=== PATIENT | male | born 1985 | race Caucasian/White ===

== ENCOUNTER 2017-12-22 20:18 | Emergency (ER) | payer MEDICAID, SELFPAY ==
[2017-12-22 20:27] VITALS: BP 128/80; PULSE 93; RESP 18; TEMP 36.8; O2SAT 96; BMI 26.2
--- NOTE | 2017-12-22 20:35 | XR_ITS ---
XR chest 2V HISTORY: Shortness of air ITS.REASON: soa ORDERING PHYSICIAN: Carlos Narvaez MD PATIENT AGE: 32 years COMPARISON: None available FINDINGS: The cardiomediastinal silhouette and pulmonary vascularity are within normal limits. The lungs are clear without infiltrates, suspicious nodules, or pleural effusions. No acute bony abnormalities. IMPRESSION: Negative chest, no acute finding
[2017-12-22 20:52] LABS: Basophils % 0.5 % (0.1-2.0); Eosinophils # 0.3 K/mm3 (0.0-0.4); Eosinophils % 3.5 % (0.1-12.0); Hematocrit 48.8 % (42.0-52.0); Hemoglobin 15.9 g/dL (14.1-18.0); Lymphocytes # 2.8 K/mm3 (0.7-4.5); Lymphocytes % 35.2 K/mm3 (10-50); Mean Corpuscular HGB Conc 32.6 g/dL (31.8-35.4); Mean Corpuscular Hemoglobin 29.6 pg (27.0-31.2); Mean Corpuscular Volume 90.7 fl (80-94); Mean Platelet Volume 7.9 fl (7.4-10.4); Microscopic, Urine URINE MICROSCOPIC (MICROSCOPIC); Monocytes # 0.4 K/mm3 (0.1-1.0); Monocytes % 5.5 % (1.7-9.3); Neutrophils # 4.3 K/mm3 (1.8-7.8); Neutrophils % 55.3 % (37.0-80.0); Platelet Count 228 K/mm3 (142-424); Red Blood Count 5.38 M/mm3 (4.60-6.20); Red Cell Distribution Width 13.8 % (11.5-17.5); White Blood Count 7.8 K/mm3 (4.8-10.8)
[2017-12-22 21:01] LABS: Appearance,Urine SL CLOUDY (Clear); Bilirubin,Urine Negative (Negative); Blood, Urine Negative (Negative); Color,Urine YELLOW (Yellow); Glucose,Urine (UA) Negative (Negative); Ketones,Urine Negative (Negative); Leukocyte Esterase,Urine Negative (Negative); Nitrate,Urine Negative (Negative); Protein,Urine Negative (Negative); Urobilinogen,Urine 0.2 EU/dl (0.2)
[2017-12-22 21:19] VITALS: BP 119/79; PULSE 107; RESP 18; O2SAT 98
[2017-12-22 21:21] LABS: Alanine Aminotransferase 35 U/L (12-78); Albumin Level 3.9 gm/dL (3.4-5.0); Albumin/Globulin Ratio 1.1 (1.1-1.8); Alkaline Phosphatase 82 U/L (46-116); Amylase 55 U/L (25-125); Aspartate Amino Transferase 19 U/L (15-37); Bilirubin,Total 0.2 mg/dL (0.2-1.0); Blood Urea Nitrogen 15 mg/dL (7-18); Calcium 8.7 mg/dL (8.5-10.1); Carbon Dioxide 30 mmol/L (21.0-32.0); Chloride 107 mmol/L (98-107); Creatinine Clearance Estimated 115 mL/min (0-300); Creatinine,Serum 1.09 mg/dL (0.70-1.30); Estimated Glomerular Filt Rate 77 ml/min (>60); GFR (African American) 94 ML/MIN (>60); Globulin 3.5 gm/dl (1.3-3.2); Glucose 87 mg/dL (74-106); Lipase 168 u/L (73-393); Sodium 144 mmol/L (136-145); Total Protein,Serum 7.4 gm/dL (6.4-8.2)
[2017-12-22 21:23] LABS: Adenovirus,PCR Not Detected (NotDetected); Bordetella Pertussis Not Detected (NotDetected); Chlamydophila Pneumoniae, PCR Not Detected (NotDetected); Coronavirus 229E Not Detected (NotDetected); Coronavirus NL63 Not Detected (NotDetected); Coronavirus OC43 Not Detected (NotDetected); Coronovirus HKU1,PCR Not Detected (NotDetected); Human Metapneumovirus Not Detected (NotDetected); Influenza A, PCR Not Detected (NotDetected); Influenza AH1, 2009 Not Detected (NotDetected); Influenza AH1, PCR Not Detected (NotDetected); Influenza AH3,PCR Not Detected (NotDetected); Influenza B, PCR Not Detected (NotDetected); Mycoplasma Pneumoniae, PCR Not Detected (NotDected); Parainfluenza 1, PCR Not Detected (NotDetected); Parainfluenza 2, PCR Not Detected (NotDetected); Parainfluenza 3, PCR Not Detected (NotDetected); Parainfluenza 4, PCR Not Detected (NotDetected); Respiratory Syncytial Virus Not Detected (NotDetected); Rhinovirus/Enterovirus Not Detected (NotDetected)
[2017-12-22 21:29] LABS: Bacteria,Urine 1+ /lpf; RBC,Urine Occasional #/hpf (0-3); WBC,Urine Occasional #/hpf (0-3)
--- NOTE | 2017-12-22 21:38 | HMH.EDNVD ---
ED Disposition Clinical Impression: Bronchitis Disposition: Home, Self-Care Condition on Discharge: Good Instructions: DI for Nausea -- Adult Additional Instructions: fluids and see pcp for follow up Prescriptions: Azithromycin [Zithromax 250mg tab] 250 mg PO DIRECTED #6 tab Referrals: Trae Durand [Primary Care Provider] - - Critical Care Critical Care Time: No Attestation: On , the high probability of a clinically significant, sudden or life threatening deterioration of the following system(s) required my full and direct attention, intervention and personal management. The time I documented below is in addition to time spent performing reported procedures but includes the following listed in this critical care notation. Medical Decision Making - Medical Records Medical records reviewed: Yes: I reviewed the patient's medical records. - Dereck Inquiry Pt receiving controlled substance: No Vital Signs: 12/22/17 20:27 12/22/17 21:19 Temperature 98.2 F Temperature Source Oral Pulse Rate [Right Brachial] 93 H 107 H Respiratory Rate 18 18 Blood Pressure [Right Arm] 128/80 119/79 Blood Pressure Mean [Right Arm] 96 92 Blood Pressure Source [Right Arm] Automatic Cuff Automatic Cuff Blood Pressure Position [Right Arm] Sitting Sitting 02 Sat by Pulse Oximetry 96 98 Oxygen Delivery Method Room Air Room Air - Lab Data Lab results reviewed: Yes: I reviewed the patient's lab results. Lab Results 12/22/17 20:40: Urine Color Yellow, Urine Appearance Sl cloudy, Urine pH 8.0, Ur Specific [place] 1.020, Urine Protein Negative, Urine Glucose (UA) Negative, Urine Ketones Negative, Urine Blood Negative, Urine Nitrate Negative, Urine Bilirubin Negative, Urine Urobilinogen 0.2, Ur Leukocyte Esterase Negative, Urine RBC Occasional, Urine WBC Occasional, Ur Squamous Epith Cells 5-10, Urine Bacteria 1+ 12/22/17 20:40: WBC 7.8, RBC 5.38, Hgb 15.9, Hct 48.8, MCV 90.7, MCH 29.6, MCHC 32.6, RDW 13.8, Plt Count 228, MPV 7.9, Neut % (Auto) 55.3, Lymph % (Auto) 35.2, [place] % (Auto) 5.5, Eos % (Auto) 3.5, Baso % (Auto) 0.5, Neut # (Auto) 4.3, Lymph # (Auto) 2.8, [place] # (Auto) 0.4, Eos # (Auto) 0.3, Baso # (Auto) 0.0 12/22/17 20:40: Sodium 144, Potassium 4.0, Chloride 107, Carbon Dioxide 30, Anion Gap 11.0, BUN 15, Creatinine 1.09, Estimated Creat Clear 115, Estimated GFR 77, Est GFR ( Amer) 94, Glucose 87, Calcium 8.7, Total Bilirubin 0.2, AST 19, ALT 35, Alkaline Phosphatase 82, Total Protein 7.4, Albumin 3.9, Globulin 3.5 H, Albumin/Globulin Ratio 1.1, Amylase 55, Lipase 168 12/22/17 20:40: Influenza Type A Ag Negative, Influenza Type B Ag Negative Result diagrams: 12/22/17 20:40 12/22/17 20:40 Orders (Tests/Meds): ED MEDICATIONS Generic Name Dose Route Start Last Admin Trade Name Freq PRN Reason Stop Dose Admin Sodium Chloride 1,000 mls @ 250 mls/hr 12/22/17 20:45 12/22/17 21:28 Sod Chlor 0.9% 1000ml Bag IV 01/21/18 20:44 250 mls/hr .Q4H DANIE Administration Discontinued Medications Generic Name Dose Route Start Last Admin Trade Name Freq PRN Reason Stop Dose Admin Ondansetron HCl 4 mg 12/22/17 20:36 12/22/17 20:41 Zofran 4mg/2ml Vial IV 12/22/17 20:37 4 mg ONCE ONE Administration ORDERS Category Date Time Status XR chest 2V Stat Exams 12/22/17 20:35 Taken Upper Respiratory Panel, PCR Stat Lab 12/22/17 21:15 Received - Radiology Data #1 Image(s): Chest Image Reviewed: Yes I reviewed the patient's radiology image Preliminary Findings: Normal/NAD Nausea/Vomiting/Diarrhea HPI - General Chief complaint: Nausea/Vomiting/Diarrhea Stated complaint: abd pain,chills Time Seen by Provider: 12/22/17 21:38 Mode of Arrival: Family Vehicle Source of Information: Patient, Spouse, Medical Record Limitations: No Limitations Description of Symptoms (Recalled from ER Triage Doc. by RN): reports vomiting, chills, achiness, cough - History of Present Illness HPI
--- NOTE | 2017-12-22 21:41 | ED_ITS ---
ED Disposition Clinical Impression: Bronchitis Disposition: Home, Self-Care Condition on Discharge: Good Instructions: DI for Nausea -- Adult Additional Instructions: fluids and see pcp for follow up Prescriptions: Azithromycin [Zithromax 250mg tab] 250 mg PO DIRECTED #6 tab Referrals: Trae Durand [Primary Care Provider] - - Critical Care Critical Care Time: No Attestation: On , the high probability of a clinically significant, sudden or life threatening deterioration of the following system(s) required my full and direct attention, intervention and personal management. The time I documented below is in addition to time spent performing reported procedures but includes the following listed in this critical care notation. Medical Decision Making - Medical Records Medical records reviewed: Yes: I reviewed the patient's medical records. - Dereck Inquiry Pt receiving controlled substance: No Vital Signs: 12/22/17 20:27 12/22/17 21:19 Temperature 98.2 F Temperature Source Oral Pulse Rate [Right Brachial] 93 H 107 H Respiratory Rate 18 18 Blood Pressure [Right Arm] 128/80 119/79 Blood Pressure Mean [Right Arm] 96 92 Blood Pressure Source [Right Arm] Automatic Cuff Automatic Cuff Blood Pressure Position [Right Arm] Sitting Sitting 02 Sat by Pulse Oximetry 96 98 Oxygen Delivery Method Room Air Room Air - Lab Data Lab results reviewed: Yes: I reviewed the patient's lab results. Lab Results 12/22/17 20:40: Urine Color Yellow, Urine Appearance Sl cloudy, Urine pH 8.0, Ur Specific [place] 1.020, Urine Protein Negative, Urine Glucose (UA) Negative, Urine Ketones Negative, Urine Blood Negative, Urine Nitrate Negative, Urine Bilirubin Negative, Urine Urobilinogen 0.2, Ur Leukocyte Esterase Negative, Urine RBC Occasional, Urine WBC Occasional, Ur Squamous Epith Cells 5-10, Urine Bacteria 1+ 12/22/17 20:40: WBC 7.8, RBC 5.38, Hgb 15.9, Hct 48.8, MCV 90.7, MCH 29.6, MCHC 32.6, RDW 13.8, Plt Count 228, MPV 7.9, Neut % (Auto) 55.3, Lymph % (Auto) 35.2 , [place] % (Auto) 5.5, Eos % (Auto) 3.5, Baso % (Auto) 0.5, Neut # (Auto) 4.3, Lymph # (Auto) 2.8, [place] # (Auto) 0.4, Eos # (Auto) 0.3, Baso # (Auto) 0.0 12/22/17 20:40: Sodium 144, Potassium 4.0, Chloride 107, Carbon Dioxide 30, Anion Gap 11.0, BUN 15, Creatinine 1.09, Estimated Creat Clear 115, Estimated GFR 77, Est GFR ( Amer) 94, Glucose 87, Calcium 8.7, Total Bilirubin 0.2 , AST 19, ALT 35, Alkaline Phosphatase 82, Total Protein 7.4, Albumin 3.9, Globulin 3.5 H, Albumin/Globulin Ratio 1.1, Amylase 55, Lipase 168 12/22/17 20:40: Influenza Type A Ag Negative, Influenza Type B Ag Negative Result diagrams: 12/22/17 20:40 12/22/17 20:40 Orders (Tests/Meds): ED MEDICATIONS Generic Name Dose Route Start Last Admin Trade Name Freq PRN Reason Stop Dose Admin Sodium Chloride 1,000 mls @ 250 mls/hr 12/22/17 20:45 12/22/17 21:28 Sod Chlor 0.9% 1000ml Bag IV 01/21/18 20:44 250 mls/hr .Q4H DANIE Administration Discontinued Medications Generic Name Dose Route Start Last Admin Trade Name Freq PRN Reason Stop Dose Admin Ondansetron HCl 4 mg 12/22/17 20:36 12/22/17 20:41 Zofran 4mg/2ml Vial IV 12/22/17 20:37 4 mg ONCE ONE Administration ORDERS Category Date Time Status XR chest 2V Stat Exams 12/22/17 20:35 Taken Upper Respiratory
[2017-12-22 22:19] VITALS: BP 118/76; PULSE 88; RESP 19; TEMP 36.6; O2SAT 96
== END 2017-12-22 22:20 | disposition home or self-care (01) ==
PROVIDERS: Emergency Provider Emergency Medicine; PCP Family Medicine
DX: J20.9 Acute bronchitis, unspecified (principal)
CPT/HCPCS: 71046; 80053; 81001; 82150; 83690; 85025; 87275; 87276; 87486; 87581; 87633; 87798; 96365; 96375; 99211; 99283; J2405

== ENCOUNTER 2017-12-26 20:45 | Emergency (ER) | payer MEDICAID, SELFPAY ==
[2017-12-26 20:55] VITALS: BP 127/92; PULSE 82; RESP 16; TEMP 36.4; O2SAT 97; BMI 26.2
--- NOTE | 2017-12-26 20:59 | XR_ITS ---
XR shoulder RT min 2V COMPARISON: Right shoulder 01/30/2016 HISTORY: Right shoulder pain TECHNIQUE: 3 views right shoulder FINDINGS: The clavicle is intact and the AC joint appears normal. The humeral head and glenoid appear normal and the no soft tissue calcifications. IMPRESSION: Negative right shoulder
--- NOTE | 2017-12-26 21:41 | HMH.EDUPEXT ---
ED Disposition Clinical Impression: Sprain of right shoulder Qualifiers: Encounter type: initial encounter Shoulder sprain type: other part of shoulder region Qualified Code(s): S43.491A - Other sprain of right shoulder joint, initial encounter Disposition: Home, Self-Care Condition on Discharge: Good Instructions: DI for Shoulder Sprain Additional Instructions: Please follow-up with orthopedic surgeon listed, if not better within 2 days. Keep the right upper extremity in a sling, apply an ice pack to the affected area, take the pain medications as directed. Work excuse attached for tomorrow. Prescriptions: Etodolac [Lodine 400mg Tab] 400 mg PO BID PRN #10 tab PRN Reason: Moderate Pain Referrals: Tyler Cooper MD [Staff Physician] - Forms: Work/School Release Time of Disposition: 21:42 - Critical Care Critical Care Time: No Attestation: On 12/26/17, the high probability of a clinically significant, sudden or life threatening deterioration of the following system(s) required my full and direct attention, intervention and personal management. The time I documented below is in addition to time spent performing reported procedures but includes the following listed in this critical care notation. Medical Decision Making - Medical Records Medical records reviewed: Yes: I reviewed the patient's medical records. - Dereck Inquiry Pt receiving controlled substance: No Vital Signs: 12/26/17 20:55 12/26/17 21:45 Temperature 97.6 F 98.7 F Temperature Source Oral Pulse Rate 80 Pulse Rate [Right Radial] 82 Respiratory Rate 16 20 Blood Pressure 134/70 Blood Pressure [Right Arm] 127/92 Blood Pressure Mean [Right Arm] 103 02 Sat by Pulse Oximetry 97 Orders (Tests/Meds): ED MEDICATIONS Discontinued Medications Generic Name Dose Route Start Last Admin Trade Name Freq PRN Reason Stop Dose Admin Ketorolac Tromethamine 60 mg 12/26/17 21:00 12/26/17 21:04 Toradol 60mg/2ml Vial IM 12/26/17 21:01 60 mg ONCE ONE Administration Tramadol HCl 1 akin 12/26/17 21:40 12/26/17 21:43 Ultram Take Home Pack 50mg (10) PO 12/26/17 21:41 1 akin ONCE ONE Administration ORDERS Category Date Time Status XR shoulder RT min 2V Stat Exams 12/26/17 20:59 Taken - Radiology Data #1 Image(s): Shoulder Image Reviewed: Yes I reviewed the patient's radiology image Preliminary Findings: Normal/NAD - Reevaluation(s) Time: 21:45 Reevaluation #1: Medically stable, in no acute distress, advised of results obtained, need to follow-up with orthopedic surgeon, keep his right upper extremity immobilized until evaluated and cleared by the orthopedic surgeon. Upper Extremity HPI - General Chief Complaint: Extremity Injury, Upper Stated Complaint: r shoulder pain severe Time Seen by Provider: 12/26/17 21:00 Mode of Arrival: Ambulatory Source of Information: Patient Limitations: No Limitations Description of Symptoms (Recalled from ER Triage Doc. by RN): right shoulder pain after moving furniture approx 25 min ago. - History of Present Illness HPI narrative: Patient is in the emergency room complaining with severe right shoulder pain after attempting to lift and move heavy piece of furniture approximately half an hour ago. Patient denies any shortness of breath or chest pain. Patient has any previous injuries to the right shoulder. Girlfriend convinced him that his shoulder must be at least dislocated. MD complaint: injury to: right Onset (ago): minute(s) (30) Other Extremity Injury: Right: shoulder Other injuries: none Handedness: right Place: home Severity: severe Severity scale (1-10): 10 Relieving factors: immobilization Exacerbating factors: movement of extremity Context: other (Lifting) - Related Data Home Medications Medication Instructions Recorded Confirmed Divalproex Sodium [Depakote 250mg 250 mg PO DAILY 12/22/17 12/26/17 (Extended-Release) Tablet] Trazo
--- NOTE | 2017-12-26 21:44 | ED_ITS ---
ED Disposition Clinical Impression: Sprain of right shoulder Qualifiers: Encounter type: initial encounter Shoulder sprain type: other part of shoulder region Qualified Code(s): S43.491A - Other sprain of right shoulder joint, initial encounter Disposition: Home, Self-Care Condition on Discharge: Good Instructions: DI for Shoulder Sprain Additional Instructions: Please follow-up with orthopedic surgeon listed, if not better within 2 days. Keep the right upper extremity in a sling, apply an ice pack to the affected area, take the pain medications as directed. Work excuse attached for tomorrow. Prescriptions: Etodolac [Lodine 400mg Tab] 400 mg PO BID PRN #10 tab PRN Reason: Moderate Pain Referrals: Tyler Cooper MD [Staff Physician] - Forms: Work/School Release Time of Disposition: 21:42 - Critical Care Critical Care Time: No Attestation: On 12/26/17, the high probability of a clinically significant, sudden or life threatening deterioration of the following system(s) required my full and direct attention, intervention and personal management. The time I documented below is in addition to time spent performing reported procedures but includes the following listed in this critical care notation. Medical Decision Making - Medical Records Medical records reviewed: Yes: I reviewed the patient's medical records. - Dereck Inquiry Pt receiving controlled substance: No Vital Signs: 12/26/17 20:55 12/26/17 21:45 Temperature 97.6 F 98.7 F Temperature Source Oral Pulse Rate 80 Pulse Rate [Right Radial] 82 Respiratory Rate 16 20 Blood Pressure 134/70 Blood Pressure [Right Arm] 127/92 Blood Pressure Mean [Right Arm] 103 02 Sat by Pulse Oximetry 97 Orders (Tests/Meds): ED MEDICATIONS Discontinued Medications Generic Name Dose Route Start Last Admin Trade Name Freq PRN Reason Stop Dose Admin Ketorolac Tromethamine 60 mg 12/26/17 21:00 12/26/17 21:04 Toradol 60mg/2ml Vial IM 12/26/17 21:01 60 mg ONCE ONE Administration Tramadol HCl 1 akin 12/26/17 21:40 12/26/17 21:43 Ultram Take Home Pack 50mg (10) PO 12/26/17 21:41 1 akin ONCE ONE Administration ORDERS Category Date Time Status XR shoulder RT min 2V Stat Exams 12/26/17 20:59 Taken - Radiology Data #1 Image(s): Shoulder Image Reviewed: Yes I reviewed the patient's radiology image Preliminary Findings: Normal/NAD - Reevaluation(s) Time: 21:45 Reevaluation #1: Medically stable, in no acute distress, advised of results obtained, need to follow-up with orthopedic surgeon, keep his right upper extremity immobilized until evaluated and cleared by the orthopedic surgeon. Upper Extremity HPI - General Chief Complaint: Extremity Injury, Upper Stated Complaint: r shoulder pain severe Time Seen by Provider: 12/26/17 21:00 Mode of Arrival: Ambulatory Source of Information: Patient Limitations: No Limitations Description of Symptoms (Recalled from ER Triage Doc. by RN): right shoulder pain after moving furniture approx 25 min ago. - History of Present Illness HPI narrative: Patient is in the emergency room complaining with severe right shoulder pain after attempting to lift and move heavy piece of furniture approximately half an hour ago. Patient denies any shortness of breath or chest
[2017-12-26 21:45] VITALS: BP 134/70; PULSE 80; RESP 20; TEMP 37.1; O2SAT 99
== END 2017-12-26 21:48 | disposition home or self-care (01) ==
PROVIDERS: Emergency Provider Emergency Medicine; PCP Family Medicine
DX: S43.491A Other sprain of right shoulder joint, initial encounter (principal); X50.0XXA Overexertion from strenuous movement or load, initial encounter; Y92.019 Unspecified place in single-family (private) house as the place of occurrence of the external cause; F17.210 Nicotine dependence, cigarettes, uncomplicated
CPT/HCPCS: 73030; 96372; 99283

== ENCOUNTER → 2019-02-09 15:58 | Outpatient (CLI) | payer MEDICAID, SELFPAY ==
[2019-02-09 17:30] LABS: Basophils # 0.1 K/mm3 (0-0.2); Basophils % 0.8 % (0.1-2.0); Eosinophils # 0.3 K/mm3 (0.0-0.4); Eosinophils % 5.4 % (0.1-12.0); Hematocrit 45.3 % (42.0-52.0); Hemoglobin 15.4 g/dL (14.1-18.0); Lymphocytes # 2.5 K/mm3 (0.7-4.5); Lymphocytes % 41.2 % (10-50); Mean Corpuscular HGB Conc 34.1 g/dL (31.8-35.4); Mean Corpuscular Hemoglobin 29.7 pg (27.0-31.2); Mean Corpuscular Volume 87.1 fl (80-94); Mean Platelet Volume 7.7 fl (7.4-10.4); Monocytes # 0.4 K/mm3 (0.1-1.0); Monocytes % 5.9 % (1.7-9.3); Neutrophils # 2.9 K/mm3 (1.8-7.8); Neutrophils % 46.7 % (37.0-80.0); Platelet Count 236 K/mm3 (142-424); Red Cell Distribution Width 13.7 % (11.5-17.5); White Blood Count 6.1 K/mm3 (4.8-10.8)
[2019-02-09 19:37] LABS: Alanine Aminotransferase 60 U/L (12-78); Albumin Level 3.7 gm/dL (3.4-5.0); Albumin/Globulin Ratio 1.2 (1.1-1.8); Alkaline Phosphatase 95 U/L (46-116); Anion Gap 13.2 mEq/L (5-15); Aspartate Amino Transferase 23 U/L (15-37); Bilirubin,Total 0.3 mg/dL (0.2-1.0); Blood Urea Nitrogen 15 mg/dL (7-18); Carbon Dioxide 27 mmol/L (21.0-32.0); Chloride 105 mmol/L (98-107); Chol/HDL Ratio 5.6 (1-3.5); Cholesterol 173 mg/dL (140-200); Estimated Glomerular Filt Rate 96 ml/min (>60); Free T4 (Free Thyroxine) 0.89 ng/dl (0.76-1.46); GFR (African American) 116 ML/MIN (>60); Globulin 3.1 gm/dl (1.3-3.2); Glucose 89 mg/dL (74-106); HDL Cholesterol 31 mg/dL (27-67); LDL Cholesterol 102 mg/dL (0-130); Potassium 4.2 mmoL/L (3.5-5.1); Sodium 141 mmol/L (136-145); Thyroid Stimulating Hormone 1.92 uIU/ml (0.358-3.740); Total Protein,Serum 6.8 gm/dL (6.4-8.2); Triglycerides 199 mg/dL (30-200); VLDL Cholesterol 40 mg/dL (0-40)
[2019-02-11 20:39] LABS: Vitamin D 25 Hydroxy 23.9 ng/mL (30.0-100.0)
[2019-02-14 12:57] LABS: Free Valproic Acid (Depakote) None Detected
== END ==
PROVIDERS: Visit Provider Nurse Practitioner Family
DX: R53.83 Other fatigue (principal); F31.9 Bipolar disorder, unspecified; E55.9 Vitamin D deficiency, unspecified; R31.0 Gross hematuria
CPT/HCPCS: 36415; 80053; 80061; 80165; 82652; 84439; 84443; 85025

== ENCOUNTER → 2019-04-24 13:46 | Outpatient (CLI) | payer MEDICAID, SELFPAY ==
[2019-04-24 15:01] LABS: Valproic Acid, (Depakene) 63.3 ug/mL (50-100)
== END ==
PROVIDERS: Visit Provider Nurse Practitioner Psychiatric/Mental Health
DX: F39 Unspecified mood [affective] disorder (principal)
CPT/HCPCS: 36415; 80164

== ENCOUNTER 2020-11-08 09:11 | Emergency (ER) | payer MEDICAID, SELFPAY ==
[2020-11-08 09:11] VITALS: BP 146/78; PULSE 86; RESP 16; O2SAT 97; BMI 30.9
[2020-11-08 09:20] VITALS: BP 123/80; PULSE 72; RESP 20; TEMP 36.7; O2SAT 95; BMI 30.9
--- NOTE | 2020-11-08 09:45 | HMH.EDUTC ---
[facility] [place] Disposition Clinical Impression: Strain of thoracic back region Disposition: Home, Self-Care Condition on Discharge: Good Instructions: DI for Thoracic Back Pain Additional Instructions: Go home and rest. It would be best if you rested tomorrow too. No heavy lifting. No twisting. Take the oral medications as directed. The muscle relaxer (robaxin) will make you drowsy, so don't drive or operate heavy machinery after taking it. Don't start the oral steroids (medrol dose pack) until tomorrow, since you had the shots in here today. Follow up with your regular doctor. GO TO THE ER FOR ANY WORSENING SYMPTOMS OR CONCERN, ESPECIALLY BOWEL OR BLADDER ISSUES, SADDLE AREA NUMBNESS, FEVER, ETC Prescriptions: methylPREDNISolone [Medrol] 4 mg PO DIRECTED 6 Days #21 tab.ds.pk Transmission Status: Received by [facility] methocarbamoL [Robaxin 750mg Tab] 750 mg PO BIDP PRN #20 tab PRN Reason: Muscle Spasm Transmission Status: Received by [facility] Referrals: Trae Durand [Primary Care Provider] - Forms: Work/School Release Time of Disposition: 10:03 Medical Decision Making - Medical Records Medical records reviewed: No: I reviewed the patient's medical records. - Dereck Inquiry Pt receiving controlled substance: No Vital Signs: 11/08/20 09:11 11/08/20 09:20 11/08/20 10:05 Temperature 98.0 F 98.0 F Temperature Source Oral Pulse Rate 72 Pulse Rate [Radial] 86 72 Respiratory Rate 16 20 20 Blood Pressure 123/80 Blood Pressure [Right Arm] 146/78 H 123/80 Blood Pressure Mean [Right Arm] 100 94 Blood Pressure Source [Right Arm] Automatic Cuff Blood Pressure Position [Right Arm] Sitting Sitting 02 Sat by Pulse Oximetry 97 95 Oxygen Delivery Method Room Air Room Air Orders (Tests/Meds): ED MEDICATIONS Discontinued Medications Generic Name Dose Route Start Last Admin Trade Name Freq PRN Reason Stop Dose Admin Ketorolac Tromethamine 60 mg 11/08/20 09:47 11/08/20 09:45 Ketorolac 60mg/2ml Vial IM 11/08/20 09:48 60 mg ONCE ONE Administration Methylprednisolone Sodium Succinate 125 mg 11/08/20 09:47 11/08/20 09:45 Methylprednisolone Sod Succ 125mg Vial IM 11/08/20 09:48 125 mg ONCE ONE Administration [facility] [place] HPI - General Stated complaint: back back, unknown origin Time Seen by Provider: 11/08/20 09:15 Mode of Arrival: Ambulatory Source of Information: Patient Limitations: No Limitations Description of Symptoms (Recalled from Triage Doc. by RN): PATIENT C/O PAIN BETWEEN SHOULDER BLADES X 2 DAYS THAT HAS GOTTEN WORSE. HE STATES HE HAS RECENTLY BEEN MOVING TO A NEW HOUSE HEENT Symptoms (Recalled from RN notes): No Resp Symptoms (Recalled from RN notes): No Skin Symptoms (Recalled from RN notes): No MS Symptoms (Recalled from RN notes): Yes Functional Status (Recalled from RN notes): WNL - History of Present Illness Provider Complaint: He states that since yesterday he has had middle back pain. He has been moving and he has had to carry lots of heavy boxes. He believes that he has strained his back. He has had similar issues before after carrying heavy stuff all day. - Related Data Previous Rx's Medication Instructions Recorded ergocalciferol (vitamin D2) 1,250 See Rx Instructions .ROUTE 09/22/19 mcg (50,000 unit) capsule .COMPLEX #12 each buspirone 10 mg tablet 10 mg PO BID #60 tab 10/09/20 cariprazine 3 mg capsule 3 mg PO DAILY #30 cap 10/09/20 mirtazapine 45 mg tablet 45 mg PO QHS #30 tab 10/09/20 venlafaxine 75 mg capsule,extended 75 mg PO DAILY #30 cap 10/09/20 release 24 hr methocarbamoL [Robaxin 750mg Tab] 750 mg PO BIDP PRN #20 tab 11/08/20 methylPREDNISolone [Medrol] 4 mg PO DIRECTED 6 Days #21 11/08/20 tab.ds.pk Allergies Allergy/AdvReac Type Severity Reaction Status Date / Time No Known Allergies Allergy Verified 07/30/20 12:48 - Worker's Comp Is this a Worker's Comp case?: No [facility]
[2020-11-08 10:05] VITALS: BP 123/80; PULSE 72; RESP 20; TEMP 36.7; O2SAT 95
== END 2020-11-08 10:08 | disposition home or self-care (01) ==
PROVIDERS: Emergency Provider Nurse Practitioner Family; PCP Family Medicine
DX: S29.012A Strain of muscle and tendon of back wall of thorax, initial encounter (principal); X50.0XXA Overexertion from strenuous movement or load, initial encounter; Y92.019 Unspecified place in single-family (private) house as the place of occurrence of the external cause; F17.210 Nicotine dependence, cigarettes, uncomplicated; F41.9 Anxiety disorder, unspecified; Z79.899 Other long term (current) drug therapy
CPT/HCPCS: 96372; 99202; G0463

== ENCOUNTER 2020-11-27 23:29 | Emergency (ER) | payer MEDICAID, SELFPAY ==
[2020-11-27 23:30] VITALS: BP 137/98; PULSE 87; RESP 14; TEMP 36.7; O2SAT 97; BMI 30.9
--- NOTE | 2020-11-27 23:34 | PC.NURSE ---
Flagyl and Bentyl dosing confirmed with [facility] in Pharmacy
[2020-11-27 23:39] VITALS: BMI 30.9
--- NOTE | 2020-11-27 23:43 | HMH.EDSKAF ---
ED Disposition Clinical Impression: Dermatitis Disposition: Home, Self-Care Condition on Discharge: Good Instructions: DI for Rash Additional Instructions: see pcp for follo wup and use meds Prescriptions: Minocycline HCl [Minocycline HCl 100mg Tab*] 100 mg PO BID #20 tab Transmission Status: Pending to [facility] predniSONE [Prednisone 20mg Tab] 20 mg PO BID #10 tab [facility] - Critical Care Critical Care Time: No Attestation: On , the high probability of a clinically significant, sudden or life threatening deterioration of the following system(s) required my full and direct attention, intervention and personal management. The time I documented below is in addition to time spent performing reported procedures but includes the following listed in this critical care notation. Medical Decision Making - Medical Records Medical records reviewed: Yes: I reviewed the patient's medical records. - Dereck Inquiry Pt receiving controlled substance: No Vital Signs: 11/27/20 23:30 Temperature 98.1 F Temperature Source Oral Pulse Rate [Right] 87 Respiratory Rate 14 Blood Pressure [Right Arm] 137/98 H Blood Pressure Mean [Right Arm] 111 02 Sat by Pulse Oximetry 97 Orders (Tests/Meds): ED MEDICATIONS Discontinued Medications Generic Name Dose Route Start Last Admin Trade Name Freq PRN Reason Stop Dose Admin Cephalexin HCl 500 mg 11/27/20 23:40 11/27/20 23:42 Cephalexin 500mg Capsule PO 11/27/20 23:41 500 mg ONCE ONE Administration Protocol Prednisone 40 mg 11/27/20 23:40 11/27/20 23:42 Prednisone 20mg Tab PO 11/27/20 23:41 40 mg ONCE ONE Administration Skin/Abscess/FB HPI - General Chief complaint: Skin/Abscess/Foreign Body Stated complaint: Rash on stomach and legs Time Seen by Provider: 11/27/20 23:43 Mode of Arrival: Ambulatory Source of Information: Patient, Medical Record Limitations: No Limitations Description of Symptoms (Recalled from ER Triage Doc. by RN): pt c/o rash on stomach and legs x week - History of Present Illness HPI narrative: progressive rash to groins and lower abd - itchy and de paz and has increased w/o response to op meds complaint: rash Onset (ago): day(s) Tetanus up to date: unsure Location: LLE, RLE Severity: moderate Quality: pruritic Associated symptoms: denies other symptoms Treatments prior to arrival: none - Related Data Previous Rx's Medication Instructions Recorded ergocalciferol (vitamin D2) 1,250 See Rx Instructions .ROUTE 09/22/19 mcg (50,000 unit) capsule .COMPLEX #12 each methocarbamoL [Robaxin 750mg Tab] 750 mg PO BIDP PRN #20 tab 11/08/20 methylPREDNISolone [Medrol] 4 mg PO DIRECTED 6 Days #21 11/08/20 tab.ds.pk buspirone 10 mg tablet 10 mg PO BID #60 tab 11/11/20 cariprazine 3 mg capsule 3 mg PO DAILY #30 cap 11/11/20 mirtazapine 45 mg tablet 45 mg PO QHS #30 tab 11/11/20 venlafaxine 75 mg capsule,extended 75 mg PO DAILY #30 cap 11/11/20 release 24 hr Minocycline HCl [Minocycline HCl 100 mg PO BID #20 tab 11/27/20 100mg Tab*] predniSONE [Prednisone 20mg 20 mg PO BID #10 tab 11/27/20 Tab] Allergies Allergy/AdvReac Type Severity Reaction Status Date / Time No Known Allergies Allergy Verified 07/30/20 12:48 [facility] History - Hepatitis A Screen Drug use history?: No High risk sexual behaviors?: No History of sexually transmitted infection?: No Currently employed?: No Childcare worker?: No Do you have indoor plumbing?: Yes Do you have electricity?: Yes Attestation statement:: This patient has been screened for Hepatitis A risk factors. I have reviewed the patient's past medical history: Yes Medical History: Reports:: Anxiety Denies:: Cancer, Diabetes Mellitus Type 1, Diabetes Mellitus Type 2, MRSA Other Medical History: Reports: Other Comment: bi polar Laterality Cases: Bilateral: Tonsillectomy, Other Other
[2020-11-28 00:08] VITALS: BP 139/95; PULSE 78; RESP 14; TEMP 36.7; O2SAT 97
== END 2020-11-28 00:10 | disposition home or self-care (01) ==
PROVIDERS: Emergency Provider Emergency Medicine
DX: L30.9 Dermatitis, unspecified (principal); F41.9 Anxiety disorder, unspecified; F17.210 Nicotine dependence, cigarettes, uncomplicated; Z79.899 Other long term (current) drug therapy
CPT/HCPCS: 99281

== ENCOUNTER 2020-12-11 20:43 | Emergency (ER) | payer MEDICAID, SELFPAY ==
--- NOTE | 2020-12-11 20:47 | XR_ITS ---
PROCEDURE: XR WRIST RT MIN 3V CLINICAL INDICATION: PAIN/SWELLING COMPARISON: CR XR HAND RT MIN 3V from 12/11/2020 FINDINGS: No fracture or dislocation. No lytic or blastic change. There is normal mineralization. The joint spaces are well-preserved. No significant degenerative/arthritic changes. No erosive changes evident. Other findings:None. IMPRESSION: No acute findings. Dictated by: Dave Chao MD 12/12/2020 05:29 aDve Chao MD in [place] 12/12/2020 05:29
--- NOTE | 2020-12-11 20:48 | XR_ITS ---
PROCEDURE: XR HAND RT MIN 3V CLINICAL INDICATION: PAIN/SWELLING COMPARISON: No exams were available for comparison FINDINGS: No fracture or dislocation. No lytic or blastic change. There is normal mineralization. The joint spaces are well-preserved. No significant degenerative/arthritic changes. No erosive changes evident. Other findings:None. IMPRESSION: No acute findings. Dictated by: Dave Chao MD 12/12/2020 05:28 Dave Chao MD in [place] 12/12/2020 05:28
[2020-12-11 20:49] VITALS: BP 137/89; PULSE 94; RESP 14; TEMP 36.6; O2SAT 100; BMI 30.7
--- NOTE | 2020-12-11 21:11 | HMH.EDUTC ---
[facility] [place] Disposition Clinical Impression: Right wrist pain, Right wrist tendonitis Disposition: Home, Self-Care Condition on Discharge: Good Instructions: DI for Wrist Strain, DI for Wrist Pain Additional Instructions: Rest the extremity, apply ice for 15 minutes as tolerated three or four times per day, Elevate the extremity as tolerated while you are resting. Wear the wrist splint to rest your wrist and hand. Take ibuprofen for pain. I sent in a prescription to your pharmacy. Follow up with Dr. Cooper (orthopedics). I put in a referral but you need to call his office and schedule an appointment. Follow up with your regular doctor. GO TO THE ER FOR ANY WORSENING SYMPTOMS Prescriptions: Ibuprofen [Ibuprofen 800mg Tablet] 800 mg PO Q8HP PRN #30 tab PRN Reason: Moderate Pain Transmission Status: Received by [facility] Referrals: Carlos Narvaez MD [Primary Care Provider] - Tyler Cooper MD [Staff Physician] - Forms: Work/School Release Time of Disposition: 21:16 Medical Decision Making - Medical Records Medical records reviewed: No: I reviewed the patient's medical records. - Dereck Inquiry Pt receiving controlled substance: No Vital Signs: 12/11/20 20:49 12/11/20 21:22 Temperature 98 F 98 F Temperature Source Tympanic Pulse Rate 81 Pulse Rate [Right] 94 H Respiratory Rate 14 14 Blood Pressure 132/77 Blood Pressure [Right Arm] 137/89 Blood Pressure Mean [Right Arm] 105 Blood Pressure Source [Right Arm] Automatic Cuff Blood Pressure Position [Right Arm] Sitting 02 Sat by Pulse Oximetry 100 Oxygen Delivery Method Room Air Orders (Tests/Meds): ED MEDICATIONS Discontinued Medications Generic Name Dose Route Start Last Admin Trade Name Freq PRN Reason Stop Dose Admin Ibuprofen 800 mg 12/11/20 21:15 12/11/20 21:18 Ibuprofen 400 Mg Tablet PO 12/11/20 21:16 800 mg ONCE ONE Administration - Radiology Data #1 Image(s): Wrist Image Reviewed: Yes I reviewed the patient's radiology image, Yes I have reviewed radiologist's interpretation Preliminary Findings: No Fracture Seen PROCEDURE: XR WRIST RT MIN 3V CLINICAL INDICATION: PAIN/SWELLING COMPARISON: CR XR HAND RT MIN 3V from 12/11/2020 FINDINGS: No fracture or dislocation. No lytic or blastic change. There is normal mineralization. The joint spaces are well-preserved. No significant degenerative/arthritic changes. No erosive changes evident. Other findings:None. IMPRESSION: No acute findings. Dictated by: Dave Chao MD 12/12/2020 05:29 Dave Chao MD in [place] 12/12/2020 05:29 #2 Image(s): Hand Image Reviewed: Yes I reviewed the patient's radiology image, Yes I have reviewed radiologist's interpretation Preliminary Findings: No Fracture Seen PROCEDURE: XR HAND RT MIN 3V CLINICAL INDICATION: PAIN/SWELLING COMPARISON: No exams were available for comparison FINDINGS: No fracture or dislocation. No lytic or blastic change. There is normal mineralization. The joint spaces are well-preserved. No significant degenerative/arthritic changes. No erosive changes evident. Other findings:None. IMPRESSION: No acute findings. Dictated by: Dave Chao MD 12/12/2020 05:28 Dave Chao MD in [place] 12/12/2020 05:28 [facility] [place] HPI - General Stated complaint: AO [id number]@2000 injured R wrist Time Seen by Provider: 12/11/20 21:12 Mode of Arrival: Ambulatory Source of Information: Patient Limitations: No Limitations Description of Symptoms (Recalled from Triage Doc. by RN): PT WAS THROWING TIRES AT WORK AND STARTED HAVING RIGHT WRIST AND HAND PAIN. HE HAS HAD A PREVIOUS WRIST FX TO THE SAME ARM IN THE PAST YEAR. HEENT Symptoms (Recalled from RN notes): No Resp Symptoms (Recalled from RN notes): No Skin Symptoms (Recalled from RN notes): No MS Symptoms (Recalled from RN notes): Yes (R WRIST AND HAND PAIN) Functional Status (Recalled from RN notes): NA
[2020-12-11 21:22] VITALS: BP 132/77; PULSE 81; RESP 14; TEMP 36.6
== END 2020-12-11 21:25 | disposition home or self-care (01) ==
PROVIDERS: Emergency Provider Nurse Practitioner Family; PCP Emergency Medicine
DX: M70.831 Other soft tissue disorders related to use, overuse and pressure, right forearm (principal); X50.3XXA Overexertion from repetitive movements, initial encounter; Y92.69 Other specified industrial and construction area as the place of occurrence of the external cause; Y99.0 Civilian activity done for income or pay
CPT/HCPCS: 29125; 73110; 73130; 99202; G0463

== ENCOUNTER 2021-02-21 08:46 | Emergency (ER) | payer MEDICAID, SELFPAY ==
[2021-02-21 08:53] VITALS: BP 134/81; PULSE 86; RESP 20; TEMP 36.7; O2SAT 99; BMI 33.9
--- NOTE | 2021-02-21 08:53 | CT_ITS ---
PROCEDURE: CT LUMBAR SPINE WO CON CLINICAL HISTORY: trauma COMPARISON: No exams were available for comparison TECHNIQUE: Axial images obtained with sagittal and coronal reformats. All CT scans at the facility use one or more dose reduction, viz: automated exposure control, ma/kV adjustment per patient size (including targeted exams where dose is matched to indication, i.e. head), or iterative reconstruction technique. FINDINGS: No evidence of acute fractures or traumatic subluxation. Bone density is normal. Focal sclerotic density in the L1 vertebral body and right iliac bone, most likely represents bone islands. Minor facet joint arthropathy is noted in the lower lumbar levels. The visualized sacrum is unremarkable. There is a nonobstructing right renal calculus measuring 3 millimeters. No evidence of hydronephrosis or hydroureter. Otherwise the paravertebral soft tissues are unremarkable. IMPRESSION: No acute fractures or traumatic subluxation. Nonobstructing right renal calculus measuring 3 millimeters. No hydronephrosis. Dictated by: Shea Cooper 02/21/2021 09:38 Shea Cooper in [place] 02/21/2021 09:38
--- NOTE | 2021-02-21 08:54 | CT_ITS ---
PROCEDURE: CT THORACIC SPINE WO CON CLINICAL HISTORY: trauma COMPARISON: CT CT LUMBAR SPINE WO CON from 02/21/2021 TECHNIQUE: Axial images obtained with sagittal and coronal reformats. All CT scans at the facility use one or more dose reduction, viz: automated exposure control, ma/kV adjustment per patient size (including targeted exams where dose is matched to indication, i.e. head), or iterative reconstruction technique. FINDINGS: No acute fractures or traumatic subluxation. Bone density is normal. Focal sclerotic density is noted in the L1 vertebral body, most likely represents a bone island. The vertebral body heights and alignment are maintained. Facet joint alignment is within normal limits. The visualized lungs are clear. Multiple calcified lymph nodes are noted in the mediastinum and left hilum. IMPRESSION: No acute fractures or traumatic subluxation. Dictated by: Shea Cooper 02/21/2021 09:35 Shea Cooper in [place] 02/21/2021 09:35
--- NOTE | 2021-02-21 10:14 | HMH.EDBACK ---
ED Disposition Clinical Impression: Strain of lumbar region Qualifiers: Encounter type: initial encounter Qualified Code(s): S39.012A - Strain of muscle, fascia and tendon of lower back, initial encounter Thoracic back pain Qualifiers: Chronicity: acute Back pain laterality: midline Qualified Code(s): M54.6 - Pain in thoracic spine Disposition: Home, Self-Care Condition on Discharge: Good Instructions: DI for Low Back Pain Prescriptions: Hydrocod/Acet 5/325 mg [[place] 5/325mg tablet] 1 tab PO Q6HP PRN #10 tab PRN Reason: Moderate Pain Transmission Status: Sent to [facility] Referrals: Provider,MD Luisa [Primary Care Provider] - Joshua Ramirez MD [Staff Physician] - - Critical Care Critical Care Time: No Attestation: On 02/21/21, the high probability of a clinically significant, sudden or life threatening deterioration of the following system(s) required my full and direct attention, intervention and personal management. The time I documented below is in addition to time spent performing reported procedures but includes the following listed in this critical care notation. Medical Decision Making - Medical Records Medical records reviewed: Yes: I reviewed the patient's medical records. - Dereck Inquiry Pt receiving controlled substance: Yes Dereck was queried for this patient: No Reason not queried -: Emergent pt cond-no time Risks and benefits of using a controlled substance: were discussed with pt by me Vital Signs: 02/21/21 08:53 Temperature 98.0 F Temperature Source Oral Pulse Rate [Left Radial] 86 Respiratory Rate 20 Blood Pressure [Right Arm] 134/81 Blood Pressure Mean [Right Arm] 98 02 Sat by Pulse Oximetry 99 Oxygen Delivery Method Room Air - Lab Data Lab Results 02/21/21 10:40: Urine Color Yellow, Urine Appearance Clear, Urine pH 6.5, Ur Specific [place] 1.025, Urine Protein Negative, Urine Glucose (UA) Negative, Urine Ketones Negative, Urine Blood Negative, Urine Nitrate Negative, Urine Bilirubin Negative, Urine Urobilinogen 0.2, Ur Leukocyte Esterase Negative Orders (Tests/Meds): ED MEDICATIONS Discontinued Medications Generic Name Dose Route Start Last Admin Trade Name Freq PRN Reason Stop Dose Admin Diazepam 5 mg 02/21/21 08:53 02/21/21 09:04 Diazepam 5mg Tablet PO 02/21/21 08:54 5 mg ONCE ONE Administration Ketorolac Tromethamine 30 mg 02/21/21 08:53 02/21/21 09:04 Ketorolac 30mg/Ml Vial IM 02/21/21 08:54 30 mg ONCE ONE Administration ORDERS Category Date Time Status Urinalysis and Microscopic Stat Lab 02/21/21 10:40 Results - CT Data CT Scan: T-Spine, L-Spine Time Received: 11:[address] Reviewed: Yes: I have reviewed the patient's CT results, I have viewed the radiologist's interpretation Findings Narrative: IMPRESSION: No acute fractures or traumatic subluxation. Nonobstructing right renal calculus measuring 3 millimeters. No hydronephrosis. - Reevaluation(s) Time: 11:02 Reevaluation #1: On reevaluation, patient is feeling better. He did have some incidental kidney stones found on the CT lumbar report. Urinalysis was unremarkable. Patient is not having issues voiding. Patient be discharged on a short course of analgesics. Needs to follow-up with urology. Given strict return precautions. Verbalized understanding. Medical Decision Narrative: 35-year-old male presented to the emergency department with some lower back pain after traumatic injury. Patient has midline tenderness. Work-up initiated. Back Pain HPI - General Chief Complaint: Back Pain/Injury Stated Complaint: AO [id number] back pain,home Time Seen by Provider: 02/21/21 09:00 Mode of Arrival: Ambulatory Limitations: No Limitations Description of Symptoms (Recalled from ER Triage Doc. by RN): pt complains of lower back pain, stated he hurt his back last wednesday wrestling in floor with his kids, states he thought pain would go away
[2021-02-21 10:43] LABS: Microscopic, Urine URINE MICROSCOPIC (MICROSCOPIC)
[2021-02-21 10:58] LABS: Appearance,Urine CLEAR (Clear); Bilirubin,Urine Negative (Negative); Blood, Urine Negative (Negative); Color,Urine YELLOW (Yellow); Glucose,Urine (UA) Negative (Negative); Ketones,Urine Negative (Negative); Leukocyte Esterase,Urine Negative (Negative); Nitrate,Urine Negative (Negative); PH,Urine 6.5 (5.0-8.5); Protein,Urine Negative (Negative); Specific Gravity, Urine 1.025 (1.005-1.030); Urobilinogen,Urine 0.2 EU/dl (0.2)
[2021-02-21 11:10] VITALS: BP 142/68; PULSE 88; RESP 20; TEMP 36.7; O2SAT 100
== END 2021-02-21 11:17 | disposition home or self-care (01) ==
PROVIDERS: Emergency Provider Emergency Medicine
DX: S39.012A Strain of muscle, fascia and tendon of lower back, initial encounter (principal); X50.3XXA Overexertion from repetitive movements, initial encounter; Y92.019 Unspecified place in single-family (private) house as the place of occurrence of the external cause; F41.9 Anxiety disorder, unspecified
CPT/HCPCS: 72128; 72131; 81001; 96372; 99282

== ENCOUNTER 2021-05-23 12:40 | Emergency (ER) | payer MEDICAID, SELFPAY ==
--- NOTE | 2021-05-23 12:46 | XR_ITS ---
PROCEDURE: XR ELBOW RT MIN 3V CLINICAL INDICATION: PAIN COMPARISON: No exams were available for comparison FINDINGS: No fracture or dislocation. No lytic or blastic change. There is normal mineralization. The joint spaces are well-preserved. No significant degenerative/arthritic changes. No erosive changes evident. Other findings:None. IMPRESSION: No acute findings. Dictated by: Dave Chao MD 05/23/2021 13:43 Dave Chao MD in [place] 05/23/2021 13:43
[2021-05-23 13:40] VITALS: BP 127/94; PULSE 82; RESP 19; TEMP 36.6; O2SAT 100; BMI 30.1
[2021-05-23 13:56] VITALS: BP 127/94; PULSE 82; RESP 19; TEMP 36.6; O2SAT 100
--- NOTE | 2021-05-23 14:00 | HMH.EDUTC ---
[facility] [place] Disposition Clinical Impression: Elbow pain Qualifiers: Laterality: right Qualified Code(s): M25.521 - Pain in right elbow Disposition: Home, Self-Care Condition on Discharge: Good Instructions: DI for Cubital Tunnel Syndrome, Cubital Tunnel Syndrome Additional Instructions: Use catrachito wrap Take medication as prescribed Follow up with Family Doctor if no improvement or any worsening of symptoms Straight to ER if any life threatening symptoms Return if needed Prescriptions: Ibuprofen [Ibuprofen 800mg Tablet] 800 mg PO Q8HP PRN #20 tab PRN Reason: Moderate Pain Transmission Status: [facility] methylPREDNISolone [Medrol 4mg tab] 4 mg PO DIRECTED #21 tab Transmission Status: Pending to [facility] Referrals: Provider,Referral, MD [Primary Care Provider] - As needed Time of Disposition: 14:12 Medical Decision Making - Dereck Inquiry Pt receiving controlled substance: No Dereck was queried for this patient: No Vital Signs: 05/23/21 13:40 05/23/21 13:56 Temperature 97.9 F 97.9 F Temperature Source Oral Pulse Rate 82 Pulse Rate [Right Brachial] 82 Respiratory Rate 19 19 Blood Pressure 127/94 H Blood Pressure [Right Arm] 127/94 H Blood Pressure Mean [Right Arm] 105 Blood Pressure Source [Right Arm] Automatic Cuff Blood Pressure Position [Right Arm] Sitting 02 Sat by Pulse Oximetry 100 Oxygen Delivery Method Room Air - Radiology Data #1 Image(s): Elbow Image Reviewed: Yes I have reviewed radiologist's interpretation IMPRESSION: No acute findings. [facility] [place] HPI - General Stated complaint: Rt elbow pain Time Seen by Provider: 05/23/21 14:00 Mode of Arrival: Ambulatory Source of Information: Patient Limitations: No Limitations Description of Symptoms (Recalled from Triage Doc. 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 States that he noticed pain starts in elbow and shoots down arm into ring and little finger States that feels like pins and needles when it happens States that pain started about a month ago and has continued so he came in to get it checked Denies known injury - Related Data Previous Rx's Medication Instructions Recorded ergocalciferol (vitamin D2) 1,250 See Rx Instructions .ROUTE 09/22/19 mcg (50,000 unit) capsule .COMPLEX #12 each methocarbamoL [Robaxin 750mg Tab] 750 mg PO BIDP PRN #20 tab 11/08/20 methylPREDNISolone [Medrol] 4 mg PO DIRECTED 6 Days #21 11/08/20 tab.ds.pk Minocycline HCl [Minocycline HCl 100 mg PO BID #20 tab 11/27/20 100mg Tab*] predniSONE [Prednisone 20mg 20 mg PO BID #10 tab 11/27/20 Tab] Ibuprofen [Ibuprofen 800mg 800 mg PO Q8HP PRN #30 tab 12/11/20 Tablet] Hydrocod/Acet 5/325 mg [[place] 1 tab PO Q6HP PRN #10 tab 02/21/21 5/325mg tablet] sertraline 50 mg tablet 50 mg PO DAILY #30 tab 04/23/21 olanzapine 10 mg tablet 10 mg PO HS #30 tab 04/24/21 Ibuprofen [Ibuprofen 800mg 800 mg PO Q8HP PRN #20 tab 05/23/21 Tablet] methylPREDNISolone [Medrol 4mg 4 mg PO DIRECTED #21 tab 05/23/21 tab] Allergies Allergy/AdvReac Type Severity Reaction Status Date / Time No Known Allergies Allergy Verified 12/24/20 09:32 - Worker's Comp Is this a Worker's Comp case?: No [facility] History - Hepatitis A Screen Drug use history?: No High risk sexual behaviors?: No History of sexually transmitted infection?: No Currently employed?: No Childcare worker?: No Do you have indoor plumbing?: Yes Do you have electricity?: Yes Attestation statement:: This patient has been screened for Hepat
== END 2021-05-23 14:15 | disposition home or self-care (01) ==
PROVIDERS: Emergency Provider Nurse Practitioner
DX: M25.521 Pain in right elbow (principal); F41.9 Anxiety disorder, unspecified
CPT/HCPCS: 73080; 99202; G0463

== ENCOUNTER 2021-07-25 05:08 | Emergency (ER) | payer MEDICAID, SELFPAY ==
[2021-07-25 05:10] VITALS: BP 151/93; PULSE 66; RESP 16; TEMP 36.4; O2SAT 98; BMI 33.1
--- NOTE | 2021-07-25 05:11 | XR_ITS ---
PROCEDURE INFORMATION: Exam: XR Right Hand Exam date and time: 07/25/2021 5:11 AM Age: 35 years old Clinical indication: Hand; Right; Patient HX: Swelling, pain to middle three fingers; Additional info: Punched a wall TECHNIQUE: Imaging protocol: XR Right hand. Views: 3 or more views. COMPARISON: CR XR HAND RT MIN 3V 12/11/2020 8:48 PM FINDINGS: Bones/joints: No acute bony injury or malalignment in the visualized right hand. Soft tissues: Mild soft tissue swelling. No radiopaque foreign body. IMPRESSION: No acute bony injury or malalignment in the visualized right hand.
--- NOTE | 2021-07-25 05:23 | HMH.EDGENADL ---
ED Disposition Clinical Impression: Hand pain Qualifiers: Laterality: right Qualified Code(s): M79.641 - Pain in right hand Disposition: Home, Self-Care Condition on Discharge: Good Additional Instructions: Motrin/Tylenol as needed for aches and pains. PCP follow-up in 1 to 2 days. Referrals: Carlos Narvaez MD [Primary Care Provider] - 3 days Time of Disposition: 05:26 - Critical Care Critical Care Time: No Attestation: On , the high probability of a clinically significant, sudden or life threatening deterioration of the following system(s) required my full and direct attention, intervention and personal management. The time I documented below is in addition to time spent performing reported procedures but includes the following listed in this critical care notation. Medical Decision Making - Medical Records Medical records reviewed: Yes: I reviewed the patient's medical records. - Dereck Inquiry Pt receiving controlled substance: No Vital Signs: 07/25/21 05:10 Temperature 97.6 F Temperature Source Oral Pulse Rate [Right] 66 Respiratory Rate 16 Blood Pressure [Right Arm] 151/93 H Blood Pressure Mean [Right Arm] 112 02 Sat by Pulse Oximetry 98 Orders (Tests/Meds): ORDERS Category Date Time Status Hand XR right minimum 3 views [XR hand RT min 3V] Stat Exams 07/25/21 05:11 Taken - Radiology Data #1 Image(s): Hand Image Reviewed: Yes I reviewed the patient's radiology image Preliminary Findings: Normal/NAD Medical Decision Narrative: Patient evaluated for pain after punching a door. No fracture on my wet read of the patient's film. Patient is discharged in stable condition. General Adult HPI - General Chief complaint: Extremity Injury, Lower Stated complaint: AO 07/24/21 18:00 injury to right hand Time Seen by Provider: 07/25/21 05:23 Mode of Arrival: Ambulatory Limitations: No Limitations Description of Symptoms (Recalled from ER Triage Doc. by RN): pt states punch a wall yesterday and now c/o rt hand pain - History of Present Illness HPI narrative: 35yo M presents the emergency department secondary to right hand pain. Patient is right-hand dominant. Reports he punched a solid door late last evening. He was aggravated. He denies any other complaints at this time. Denies any other thoughts of self-harm. - Related Data Previous Rx's Medication Instructions Recorded olanzapine 10 mg tablet 10 mg PO HS #30 tab 04/24/21 Ibuprofen [Ibuprofen 800mg 800 mg PO Q8HP PRN #20 tab 05/23/21 Tablet] Allergies Allergy/AdvReac Type Severity Reaction Status Date / Time No Known Allergies Allergy Verified 05/30/21 13:38 [facility] History - Hepatitis A Screen Drug use history?: No High risk sexual behaviors?: No History of sexually transmitted infection?: No Currently employed?: No Childcare worker?: No Do you have indoor plumbing?: Yes Do you have electricity?: Yes Attestation statement:: This patient has been screened for Hepatitis A risk factors. I have reviewed the patient's past medical history: Yes Medical History: Reports:: Anxiety, Depression Denies:: Cancer, Diabetes Mellitus Type 1, Diabetes Mellitus Type 2, MRSA Other Medical History: Reports: Other Comment: bi polar Laterality Cases: Bilateral: Tonsillectomy, Other Other Surgeries: Yes: Hernia Repair, Other Amputation: No Fractures: No Comment: Eyes - Social History Smoking Status: Current every day smoker Tobacco Type: cigarettes # Packs/Day (cigarettes): 1 Alcohol Intake: never Alcohol Intake Frequency:: holidays/special occasions only Substance Use Type: denies use Occupational Status: unemployed - Psychiatric History Pschychiatric History:: Reports:: Anxiety, Depression Family Hx:: Cancer, Hypertension, Diabetes ROS Obtained: Yes All systems reviewed & no additional complaints - Musculoskeletal Musculoskeletal: Reports as per HPI Physical Exam - General General appearance: martha
[2021-07-25 05:32] VITALS: BP 119/84; PULSE 64; RESP 16; TEMP 36.4; O2SAT 98
== END 2021-07-25 05:33 | disposition home or self-care (01) ==
PROVIDERS: Emergency Provider Family Medicine; PCP Emergency Medicine
DX: M79.641 Pain in right hand (principal); S69.81XA Other specified injuries of right wrist, hand and finger(s), initial encounter; F41.9 Anxiety disorder, unspecified; F32.9 Major depressive disorder, single episode, unspecified; Z80.9 Family history of malignant neoplasm, unspecified; Z81.8 Family history of other mental and behavioral disorders
CPT/HCPCS: 73130; 99282